=== PATIENT | female | born 1970 | race Caucasian/White ===

== ENCOUNTER 2016-07-29 08:14 | Day surgery (SDC) | payer BC ==
[~2016-07-29] VITALS: Ht 170.2 cm; Wt 72.6 kg
[~2016-07-29 08:14] MED LIST: ASCORBIC ACID500 M3 PO; B COMPLETE1 EACH PO; CYMBALTA60 MG PO; DAILY MULTIPLE1 EACH PO; DEPAKOTE500 MG PO; ENDOCET 7.5-321 EACH PO; FIORICET,ESG1 TABLET PO; TOPAMAX100 MG PO; TOPAMAX25 MG PO; TROKENDI XR100 MG PO; ZOFRAN4 MG PO
[2016-07-29 08:41] VITALS: BP 114/66
[2016-07-29] MEDS ORDERED: HYDROCODON-ACE1 EAC7 PO (10:43)
[2016-07-29] MEDS ORDERED: IBUPROFEN800 MG PO (10:43)
[2016-07-29 11:26] VITALS: BP 108/67
[2016-07-29 12:28] VITALS: BP 109/71
== END 2016-07-29 13:20 | disposition home or self-care (01) ==
LOC: SDC 08:14
PROC: 0UBC7ZZ Excision of Cervix, Via Natural or Artificial Opening (ICD-10-PCS; principal; 2016-07-29)
DX: D06.9 Carcinoma in situ of cervix, unspecified (principal); R87.810 Cervical high risk human papillomavirus (HPV) DNA test positive
CPT/HCPCS: 88305; 88307; J1100; J1885; J2405; J3010

== ENCOUNTER 2017-09-10 11:38 | Emergency (ER) | payer BC, OTHER ==
[~2017-09-10] VITALS: Ht 170.2 cm; Wt 76.7 kg
[~2017-09-10 11:38] MED LIST changes: +HYDROCODON-ACE1 EAC7 PO; +IBUPROFEN800 MG PO
[2017-09-10 18:17] VITALS: BP 117/74
== END 2017-09-10 18:18 | disposition left against medical advice (07) ==
LOC: EME 11:38
DX: G43.909 Migraine, unspecified, not intractable, without status migrainosus (principal); Z53.20 Procedure and treatment not carried out because of patient's decision for unspecified reasons
CPT/HCPCS: 99281; 99283; J0780; J1100; J1200; J1885; J7030